=== PATIENT | female | born 2000 | race Caucasian/White ===

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

== ENCOUNTER 2021-03-24 18:24 | Emergency (ER) | payer OTHER ==
[2021-03-24 19:26] LABS: MUDS CUTOFF CONCENTRATIONS CUTOFF CONC BELOW:
[2021-03-24 19:27] LABS: BASOPHILS % (AUTO) 0.7 %; EOSINOPHILS # (AUTO) 0.1 10^3/uL (0.0-0.7); EOSINOPHILS % (AUTO) 1.1 %; HCT - HEMATOCRIT 41.1 % (37.0-47.0); HGB - HEMOGLOBIN 13.6 g/dL (12.0-16.0); LYMPHOCYTES # (AUTO) 1.4 10^3/uL (1.5-3.5); LYMPHOCYTES % (AUTO) 24.3 %; MEAN CORPUSCULAR HEMOGLOBIN 28.2 pg (27.0-31.0); MEAN CORPUSCULAR HGB CONC 33.1 g/dL (32.0-36.0); MEAN CORPUSCULAR VOLUME 85.3 fL (81.0-99.0); MEAN PLATELET VOLUME 10.2 fL (7.9-10.8); MONOCYTES # (AUTO) 0.4 10^3/uL (0.0-1.0); MONOCYTES % (AUTO) 6.4 %; NEUTROPHILS # (AUTO) 3.8 10^3/uL (1.5-6.6); NEUTROPHILS % (AUTO) 67.1 %; PLT - PLATELET COUNT 219 10^3/uL (130-450); RED BLOOD COUNT 4.82 10^6/uL (4.20-5.40); RED CELL DISTRIBUTION WIDTH 13.2 % (12.0-15.0); WHITE BLOOD COUNT 5.6 x10^3/uL (4.8-10.8)
[2021-03-24 19:29] LABS: BILIRUBIN,URINE NEGATIVE (NEGATIVE); GLUCOSE, URINE (UA) NEGATIVE (NEGATIVE); KETONES,URINE (UA) NEGATIVE (NEGATIVE); LEUKOCYTE ESTERASE, URINE NEGATIVE (NEGATIVE); NITRITE,URINE NEGATIVE (NEGATIVE); OCCULT BLOOD,URINE NEGATIVE (NEGATIVE); PROTEIN,URINE NEGATIVE (NEGATIVE); UROBILINOGEN,URINE 0.2 (NORMAL) E.U./dL (NORMAL)
[2021-03-24 19:39] LABS: CLARITY,URINE CLEAR (CLEAR); HCG UR QUAL NEGATIVE
[2021-03-24 19:41] LABS: AMPHETAMINE SCREEN,URINE NEGATIVE (NEGATIVE); BARBITURATE SCREEN,UR NEGATIVE (NEGATIVE); BENZODIAZEPINES SCREEN, URINE POSITIVE (NEGATIVE); COCAINE SCREEN URINE NEGATIVE (NEGATIVE); METHADONE SCREEN, URINE NEGATIVE (NEGATIVE); METHAMPHETAMINES SCREEN, URINE NEGATIVE (NEGATIVE); OPIATE SCREEN, URINE NEGATIVE (NEGATIVE); OXYCODONE SCREEN, URINE NEGATIVE (NEGATIVE); PROPOXYPHENE SCREEN, URINE NEGATIVE (NEGATIVE); THC CANNABINOID SCREEN, URINE NEGATIVE (NEGATIVE); TRICYCLIC ANTIDEPRESSANT,URINE NEGATIVE (NEGATIVE)
[2021-03-24 19:45] LABS: ACETAMINOPHEN < 10 ug/mL (10-30); ALBUMIN 4.7 g/dL (3.2-5.5); ALKALINE PHOSPHATASE 51 IU/L (42-121); ALT ALANINE AMINOTRANSFERASE 15 IU/L (10-60); AST ASPARTATE AMINOTRANSFERASE 17 IU/L (10-42); BUN - BLOOD UREA NITROGEN 15 mg/dL (6-20); CALCIUM 9.6 mg/dL (8.5-10.3); CARBON DIOXIDE - CO2 28 mmol/L (21-32); CHLORIDE 102 mmol/L (101-111); CREATININE 0.6 mg/dL (0.4-1.0); ETOH - ETHANOL < 5.0 mg/dL; GFR - MDRD 127 (>89); GLUCOSE 94 mg/dL (70-100); LIPASE 30 U/L (22-51); POTASSIUM 3.5 mmol/L (3.5-5.0); SALICYLATE < 6.0 mg/dL; SODIUM 139 mmol/L (135-145); TOTAL PROTEIN 7.1 g/dL (6.7-8.2)
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
[2021-03-24] MEDS ORDERED: BACITRACIN ZINC OINT 1 PACKET TOP STA (20:42)
[2021-03-24 20:44] LABS: B. PARAPERTUSSIS- RESP PCR PAN NOT DETECTED; B. PERTUSSIS- RESP PCR PANEL NOT DETECTED; C. PNEUMONIAE- RESP PCR PANEL NOT DETECTED; CORONAVIRUS 229E-RESP PCR NOT DETECTED; CORONAVIRUS HKU1-RESP PCR NOT DETECTED; CORONAVIRUS NL63-RESP PCR NOT DETECTED; CORONAVIRUS OC43-RESP PCR NOT DETECTED; HUMAN METAPNEUMOVIRUS NOT DETECTED; INFLUENZA A- RESP PCR PANEL NOT DETECTED; INFLUENZA B - RESP PCR PANEL NOT DETECTED; M. PNEUMONIAE- RESP PCR PANEL NOT DETECTED; PARAINFLUENZA VIRUS 1 NOT DETECTED; PARAINFLUENZA VIRUS 2 NOT DETECTED; PARAINFLUENZA VIRUS 3 NOT DETECTED; PARAINFLUENZA VIRUS 4 NOT DETECTED; RHINOVIRUS/ENTEROVIRUS NOT DETECTED; RSV- RESP PCR PANEL NOT DETECTED; SARS-CoV-2 -RESP PCR PANEL NOT DETECTED
[2021-03-24 21:48] VITALS: BP 106/55
== END 2021-03-24 21:53 | disposition home or self-care (01) ==
LOC: ED 18:24
DX: F32.A Depression, unspecified (principal); F41.9 Anxiety disorder, unspecified; F43.10 Post-traumatic stress disorder, unspecified; Z91.410 Personal history of adult physical and sexual abuse; S51.812A Laceration without foreign body of left forearm, initial encounter; X78.1XXA Intentional self-harm by knife, initial encounter; Z20.822 Contact with and (suspected) exposure to COVID-19
CPT/HCPCS: 0202U; 36415; 80053; 80306; 80307; 80320; 80329; 81003; 81025; 83690; 84443; 85025; 99283; 81001; 87086

== ENCOUNTER 2021-06-01 09:21 | Emergency (ER) | payer OTHER ==
--- NOTE | 2021-06-01 09:54 | ED Physician Documentation ---
PD HPI SYNCOPE - Stated complaint Stated Complaint: FAINTING - Chief complaint Chief Complaint: Neuro - History obtained from History obtained from: Patient - History of Present Illness Witnessed: Unwitnessed Timing - onset: Today Duration: Seconds Preceding symptoms: Vision changes, Diaphoresis, Light headed, Generalized weakn ess Contributing factors: Just stood up Injury occurred: None Similar symptoms before: Diagnosis (syncope and near syncope) Recently seen: Not recently seen - Additional information Additional information: 20-year-old female relates that she has frequent episodes of syncope or near syncope usually related to standing up too fast. She has been evaluated by her primary care doctor without orthostasis. She denies any vomiting or diarrhea she denies any reason for being dehydrated. She has not been ill recently. She states when she has these events she goes to stand up she gets lightheaded dizzy will sometimes faint or nearly collapse. She has no rhyme or reason for when these episodes happen. She thinks that she has episodes as often as 3-5 times per month. She was asked by her command to come to the [facility] department to be evaluated today when she asked them to excuse her from work for the episode she had this morning. Review of Systems Constitutional: denies: Fever Eyes: denies: Decreased vision Ears: denies: Ear pain Nose: denies: Congestion Throat: denies: Sore throat Cardiac: denies: Chest pain / pressure, Palpitations Respiratory: denies: Dyspnea, Cough GI: denies: Abdominal Pain, Nausea, Vomiting : denies: Dysuria, Frequency PD PAST MEDICAL HISTORY - Past Medical History Psych: Post traumatic stress disorder, Other - Past Surgical History Past Surgical History: No - Present Medications Home Medications: Ambulatory Orders Medication Instructions Recorded Confirmed Sertraline [Zoloft] 200 mg PO DAILY 03/24/21 03/24/21 hydrOXYzine HCL [Hydroxyzine HCl] 10 mg PO BID PRN 03/24/21 03/24/21 - Allergies Allergies/Adverse Reactions: Allergies Allergy/AdvReac Type Severity Reaction Status Date / Time No Known Drug Allergies Allergy Verified 06/01/21 09:47 - Social History Does the pt smoke?: No Smoking Status: Never smoker Does the pt drink ETOH?: No Does the pt have substance abuse?: No - Immunizations Immunizations are current?: Yes - POLST Patient has POLST: No PD ED PE NORMAL - Vitals Vital signs reviewed: Yes (Wide pulse pressure) - General General: Alert and oriented X 3, No acute distress, Well developed/nourished - HEENT HEENT: Atraumatic, PERRL, EOMI - Neck Neck: Supple, no meningeal sign, No bony TTP - Cardiac Cardiac: RRR, No murmur - Respiratory Respiratory: No respiratory distress, Clear bilaterally - Abdomen Abdomen: Normal bowel sounds, Soft, Non tender, Non distended, No organomegaly - Back Back: No CVA TTP, No spinal TTP - Derm Derm: Normal color, Warm and dry, No rash - Extremities Extremities: No deformity, No edema - Neuro Neuro: Alert and oriented X 3, 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, No motor deficit, No sensory deficit, Normal speech Eye Opening: Spontaneous Motor: Obeys Commands Verbal: Oriented GCS Score: 15 - Psych Psych: Normal mood, Normal affect Results - Vitals Vitals: Vital Signs - 24 hr 06/01/21 06/01/21 06/01/21 09:44 10:00 10:02 Temperature 36.8 C Heart Rate 73 66 Heart Rate [ 77 Sitting] Heart Rate [ 77 Standing] Heart Rate [ 68 Supine] Respiratory 16 18 Rate Blood Pressure 102/50 L 100/69 Blood Pressure 100/66 [Sitting] Blood Pressure 98/69 [Standing] Blood Pressure 100/63 [Supine] O2 Saturation 100 100 Oxygen O2 Source Room air - Labs Labs: Laboratory Tests 06/01/21 06/01/21 06/01/21 10:03 10:03 10:37 WBC 4.7 L RBC 4.58 Hgb 12.9 Hct 38.8 MCV 84.7 MCH 28.2 MCHC 33.2 RDW 12.3 Plt Count 187 MPV 10.3 Neut # (Auto) 3.0 Lymph # (Auto) 1.3 L [place] # (Auto) 0.3 Eos # (Auto) 0.1 Baso # (Auto) 0.0 Absolute Nucleated RBC 0.00 Nucleated RBC % 0.0 Sodium 135 Potassium 3.9 Chloride 102 Carbon Dioxide 25 Anion Gap 8.0 BUN 15 Creatinine 0.7 Estimated GFR (MDRD) 107 Glucose 94 Calcium 9.2 Total Bilirubin 0.6 AST 13 ALT 14 Alkaline Phosphatase 36 L Total Protein 6.7 Albumin 4.4 Globulin 2.3 Albumin/Globulin Ratio 1.9 Lipase 40 Urine Color YELLOW Urine Clarity CLEAR Urine pH 6.0 Ur Specific [place] 1.025 Urine Protein NEGATIVE Urine Glucose (UA) NEGATIVE Urine Ketones NEGATIVE Urine Occult Blood NEGATIVE Urine Nitrite NEGATIVE Urine Bilirubin NEGATIVE Urine Urobilinogen 0.2 (NORMAL) Ur Leukocyte Esterase NEGATIVE Ur Microscopic Review NOT INDICATED Urine Culture Comments NOT INDICATED Urine HCG, Qual NEGATIVE Urine Opiates Screen NEGATIVE Ur Oxycodone Screen NEGATIVE Urine Methadone Screen NEGATIVE Ur Propoxyphene Screen NEGATIVE Ur Barbiturates Screen NEGATIVE Ur Tricyclics Screen NEGATIVE Ur Phencyclidine Scrn NEGATIVE Ur Amphetamine Screen NEGATIVE U Methamphetamines Scrn NEGATIVE U Benzodiazepines Scrn NEGATIVE Urine Cocaine Screen NEGATIVE U Cannabinoids Screen NEGATIVE Ethyl Alcohol < 5.0 Procedures - IVC sono (time) 0950 Bedside IVC sono: IVC measures (cm) (1.97), Euvolemia PD MEDICAL DECISION MAKING - ED course Complexity details: reviewed results, re-evaluated patient, considered differential, d/w patient ED course: 20-year-old female with frequent episodes of syncope or near syncope is found to be euvolemic today on interrogation the inferior vena cava. She has no other specific illness and she is not orthostatic on testing. I have asked patient to follow-up with a neurologist to do tilt table testing for potential treatment of pots disease. Departure - Departure Disposition: 01 Home, Self Care Clinical Impression: Syncope and collapse Condition: Stable Instructions: ED Syncope Vasovagal Follow-Up: ALEJANDRA ARCE MD [Primary Care Provider] - Rustam Foster MD [Physician No Access] - Comments: Monae, today we did not discover a specific reason for your fainting episodes. We did document that your volume status today was normal. You did have some change in your heart rate with orthostasis and this was mild. The recommendation currently is to get up slowly when you do get up and have a follow-up arranged with Dr. Ramon for a tilt table test. Forms: Activity restrictions Discharge Date/Time: 06/01/21 11:36
[2021-06-01 10:03] VITALS: BP 100/69
[2021-06-01 10:13] LABS: BASOPHILS % (AUTO) 0.9 %; EOSINOPHILS # (AUTO) 0.1 10^3/uL (0.0-0.7); EOSINOPHILS % (AUTO) 1.5 %; HCT - HEMATOCRIT 38.8 % (37.0-47.0); HGB - HEMOGLOBIN 12.9 g/dL (12.0-16.0); LYMPHOCYTES # (AUTO) 1.3 10^3/uL (1.5-3.5); LYMPHOCYTES % (AUTO) 27.1 %; MEAN CORPUSCULAR HEMOGLOBIN 28.2 pg (27.0-31.0); MEAN CORPUSCULAR HGB CONC 33.2 g/dL (32.0-36.0); MEAN CORPUSCULAR VOLUME 84.7 fL (81.0-99.0); MEAN PLATELET VOLUME 10.3 fL (7.9-10.8); MONOCYTES # (AUTO) 0.3 10^3/uL (0.0-1.0); MONOCYTES % (AUTO) 6.8 %; NEUTROPHILS % (AUTO) 63.5 %; PLT - PLATELET COUNT 187 10^3/uL (130-450); RED BLOOD COUNT 4.58 10^6/uL (4.20-5.40); RED CELL DISTRIBUTION WIDTH 12.3 % (12.0-15.0); WHITE BLOOD COUNT 4.7 x10^3/uL (4.8-10.8)
[2021-06-01 10:23] LABS: ALBUMIN 4.4 g/dL (3.2-5.5); ALBUMIN/GLOBULIN RATIO 1.9 (1.0-2.2); ALKALINE PHOSPHATASE 36 IU/L (42-121); ALT ALANINE AMINOTRANSFERASE 14 IU/L (10-60); AST ASPARTATE AMINOTRANSFERASE 13 IU/L (10-42); BILIRUBIN,TOTAL 0.6 mg/dL (0.2-1.0); BUN - BLOOD UREA NITROGEN 15 mg/dL (6-20); CALCIUM 9.2 mg/dL (8.5-10.3); CARBON DIOXIDE - CO2 25 mmol/L (21-32); CHLORIDE 102 mmol/L (101-111); CREATININE 0.7 mg/dL (0.4-1.0); ETOH - ETHANOL < 5.0 mg/dL; GFR - MDRD 107 (>89); GLUCOSE 94 mg/dL (70-100); LIPASE 40 U/L (22-51); POTASSIUM 3.9 mmol/L (3.5-5.0); SODIUM 135 mmol/L (135-145); TOTAL PROTEIN 6.7 g/dL (6.7-8.2)
[2021-06-01 10:45] LABS: MUDS CUTOFF CONCENTRATIONS CUTOFF CONC BELOW:
[2021-06-01 10:47] LABS: BILIRUBIN,URINE NEGATIVE (NEGATIVE); GLUCOSE, URINE (UA) NEGATIVE (NEGATIVE); KETONES,URINE (UA) NEGATIVE (NEGATIVE); LEUKOCYTE ESTERASE, URINE NEGATIVE (NEGATIVE); NITRITE,URINE NEGATIVE (NEGATIVE); OCCULT BLOOD,URINE NEGATIVE (NEGATIVE); PROTEIN,URINE NEGATIVE (NEGATIVE); UROBILINOGEN,URINE 0.2 (NORMAL) E.U./dL (NORMAL)
[2021-06-01 10:50] LABS: CLARITY,URINE CLEAR (CLEAR); HCG UR QUAL NEGATIVE
[2021-06-01 11:01] LABS: AMPHETAMINE SCREEN,URINE NEGATIVE (NEGATIVE); BARBITURATE SCREEN,UR NEGATIVE (NEGATIVE); BENZODIAZEPINES SCREEN, URINE NEGATIVE (NEGATIVE); COCAINE SCREEN URINE NEGATIVE (NEGATIVE); METHADONE SCREEN, URINE NEGATIVE (NEGATIVE); METHAMPHETAMINES SCREEN, URINE NEGATIVE (NEGATIVE); OPIATE SCREEN, URINE NEGATIVE (NEGATIVE); OXYCODONE SCREEN, URINE NEGATIVE (NEGATIVE); PROPOXYPHENE SCREEN, URINE NEGATIVE (NEGATIVE); THC CANNABINOID SCREEN, URINE NEGATIVE (NEGATIVE); TRICYCLIC ANTIDEPRESSANT,URINE NEGATIVE (NEGATIVE)
== END 2021-06-01 11:36 | disposition home or self-care (01) ==
LOC: ED 09:21
DX: R55 Syncope and collapse (principal)
CPT/HCPCS: 36415; 80053; 80306; 80320; 81001; 81003; 81025; 83690; 85025; 87086; 99283

== ENCOUNTER 2021-06-26 22:37 | Emergency (ER) | payer OTHER ==
[2021-06-26 22:45] VITALS: BP 103/59
[2021-06-26] MEDS ORDERED: ACETAMINOPHEN 325 MG TABLET PO STA (23:09)
--- NOTE | 2021-06-26 23:43 | ED Physician Documentation ---
PD HPI LOWER EXT INJURY - Stated complaint Stated Complaint: L KNEE INJURY - Chief complaint Chief Complaint: Trauma Ext - History obtained from History obtained from: Patient - History of Present Illness PD HPI LOW EXT INJURY LOCATION: Left, Knee Timing - onset: How many days ago (1) Improved by: Rest Worsened by: Moving Associated symptoms: No: Weakness, Numbness, Tingling Contributing factors: No: Prior ortho surgery - Additional information Additional information: Patient presenting for evaluation of left knee pain for 1 day. Patient was at a climbing gym when she was being lowered and landed wrong. She was able to ambulate but has been having a pain to the posterior aspect of the left knee since then.She has not tried anything for her pain. SheDenies previous injury, numbness, tingling, weakness. There is no pain elsewhere. Review of Systems Constitutional: denies: Fever Cardiac: denies: Chest pain / pressure Respiratory: denies: Dyspnea GI: denies: Abdominal Pain : denies: Dysuria Musculoskeletal: reports: Joint pain Neurologic: denies: Generalized weakness PD PAST MEDICAL HISTORY - Past Medical History Past Medical History: Yes Psych: Depression, Anxiety, Post traumatic stress disorder, Other - Past Surgical History Past Surgical History: No - Present Medications Home Medications: Ambulatory Orders Medication Instructions Recorded Confirmed Sertraline [Zoloft] 100 mg PO DAILY 03/24/21 06/26/21 Propranolol [Inderal] 10 mg PO DAILY 06/26/21 06/26/21 Venlafaxine HCl 75 mg PO DAILY 06/26/21 06/26/21 - Allergies Allergies/Adverse Reactions: Allergies Allergy/AdvReac Type Severity Reaction Status Date / Time No Known Drug Allergies Allergy Verified 06/26/21 22:45 - Social History Does the pt smoke?: No Smoking Status: Never smoker Does the pt drink ETOH?: No Does the pt have substance abuse?: No - Immunizations Immunizations are current?: Yes - POLST Patient has POLST: No PD ED PE NORMAL - General General: Alert and oriented X 3, No acute distress - HEENT HEENT: Atraumatic, PERRL - Cardiac Cardiac: RRR, No gallop, Strong equal pulses - Respiratory Respiratory: No respiratory distress, Clear bilaterally - Abdomen Abdomen: Soft - Derm Derm: Normal color, Warm and dry, No rash - Extremities Extremities: No deformity, No calf tenderness / cord, Other (No pain with flexion of left knee, slight pain with full extension in the region of the distal posterior thigh, No crepitus, redness or swelling.). No: No tenderness to palpate - Neuro Neuro: No motor deficit, No sensory deficit PD ED PE EXPANDED - Visual Whole body visual: 1 - tenderness Results - Vitals Vitals: Vital Signs - 24 hr 06/26/21 22:40 Temperature 36.0 C L Heart Rate 80 Respiratory 16 Rate Blood Pressure 103/59 L O2 Saturation 100 Oxygen O2 Source Room air PD MEDICAL DECISION MAKING - ED course ED course: Patient presenting for evaluation of posterior left knee pain. Pain seems to be localized to the distal hamstrings and present primarily with extension At the knee. X-ray is negative for fracture dislocation. I do not suspect a DVT. She is neurovascularly intact. Compartments of the extremity are soft. She is able to ambulate. I suspect a muscle or ligament strain. Discussed supportive care with the patient and follow-up with primary care doctor if symptoms do not improve. Departure - Departure Disposition: 01 Home, Self Care Clinical Impression: Knee injury Qualifiers: Encounter type: initial encounter Laterality: left Qualified Code(s): S89.92XA - Unspecified injury of left lower leg, initial encounter Condition: Stable Instructions: ED Sprain Knee Comments: Your x-ray does not show a broken bone or a bone out of place. You may have strained a muscle or ligament but the joint appears stable. Use the Brian wrap for additional support and I recommend you trying to rest the extremity as much as possible for the next day. You can also use ice and Tylenol or Motrin for pain as needed. Please follow-up with your PCM. Discharge Date/Time: 06/27/21 00:15
--- NOTE | 2021-06-26 23:53 | XRAY Report ---
PROCEDURE: Knee 2 View LT INDICATIONS: pain TECHNIQUE: 3 views of the left knee were acquired. COMPARISON: None. FINDINGS: Bones: No acute fractures or dislocations. No suspicious bony lesions. Soft tissues: No joint effusion. No suspicious soft tissue calcifications. IMPRESSION: No acute osseous abnormality. If there is clinical concern or persistent symptoms, carol tional imaging such as repeat radiographs or advanced imaging (e.g. CT, MRI) may be helpful for furth er evaluation. Reviewed by: Salvador Guajardo MD on 06/26/2021 11:51 PM PST Approved by: Salvador Guajardo MD on 06/26/2021 11:51 PM PST Station ID: [id number]
== END 2021-06-27 00:15 | disposition home or self-care (01) ==
LOC: ED 22:37
DX: S89.92XA Unspecified injury of left lower leg, initial encounter (principal); X50.1XXA Overexertion from prolonged static or awkward postures, initial encounter; Y93.31 Activity, mountain climbing, rock climbing and wall climbing; Y92.39 Other specified sports and athletic area as the place of occurrence of the external cause
CPT/HCPCS: 73560; 99282; 99283; A9270

== ENCOUNTER 2021-06-28 14:55 | Emergency (ER) | payer OTHER ==
[2021-06-28 15:15] VITALS: BP 98/55
--- OUTSIDE RECORDS SUMMARY | 2021-06-28 15:29 | EXTERNAL MEDICAL SUMMARY RPT | Continuity of Care Document ---
:2000 Author Organization [facility] Address [address] [place] [address] Phone Care Team Providers Name Role Phone Kenton VALDEZ Unavailable Unavailable Allergies No information. Encounters No information. Medications No information. Problems date description facility [id number] Unspecified injury of left lower leg, i nitial encounter All [id number] Injury of left knee All Results No information. Vital Signs date measurement value source 20210627 weight_standard 124 lb [id number] weight_metric 56.25 kg 20210627 temperature_standard 98.2 F [id number] temperature_metric 36.78 C 20210627 respiration_rate 16 /min 20210627 heart_rate 16 /min [id number] BP_systolic 108 mm[Hg] 20210627 BP_diastolic 72 mm[Hg]
[2021-06-28] MEDS ORDERED: MELOXICAM 7.5 MG TABLET PO STA (15:53)
--- NOTE | 2021-06-28 15:57 | ED Physician Documentation ---
PD HPI LOWER EXT INJURY - Stated complaint Stated Complaint: KNEE PX - Chief complaint Chief Complaint: Trauma Ext - History obtained from History obtained from: Patient - History of Present Illness PD HPI LOW EXT INJURY LOCATION: Left, Knee Type of injury: Fall Where injury occurred: Home Pain level max: 7 Pain level now: 5 Improved by: Rest, Ice, Immobilization Worsened by: Moving, Palpating Associated symptoms: Swelling. No: Weakness, Numbness, Tingling, Discolored Contributing factors: No: Anticoagulated - Additional information Additional information: Patient is a 20-year-old female who presents to the emergency department complaining of left knee pain. She states that this started after hyperextending the knee at a climbing gym. Worse with movement, better with rest. States it is painful to walk. Has not taken anything for pain at home. Has noted swelling to the knee. Denies any possibility of . Had negative x-rays previously Review of Systems Constitutional: denies: Fever, Chills GI: denies: Vomiting : denies: Now EGA Skin: denies: Rash Musculoskeletal: denies: Neck pain, Back pain Neurologic: denies: Headache PD PAST MEDICAL HISTORY - Past Medical History Past Medical History: Yes Psych: Depression, Anxiety, Post traumatic stress disorder, Other - Past Surgical History Past Surgical History: No - Present Medications Home Medications: Ambulatory Orders Medication Instructions Recorded Confirmed Sertraline [Zoloft] 100 mg PO DAILY 03/24/21 06/28/21 Propranolol [Inderal] 10 mg PO DAILY 06/26/21 06/28/21 Venlafaxine HCl 75 mg PO DAILY 06/26/21 06/28/21 Meloxicam [Mobic] 15 mg PO DAILY PRN #20 tablet 06/28/21 - Allergies Allergies/Adverse Reactions: Allergies Allergy/AdvReac Type Severity Reaction Status Date / Time No Known Drug Allergies Allergy Verified 06/28/21 15:10 - Social History Does the pt smoke?: No Smoking Status: Never smoker Does the pt drink ETOH?: No Does the pt have substance abuse?: No - Immunizations Immunizations are current?: Yes - POLST Patient has POLST: No PD ED PE NORMAL - Vitals Vital signs reviewed: Yes - General General: Alert and oriented X 3, No acute distress - HEENT HEENT: Moist mucous membranes - Respiratory Respiratory: No respiratory distress - Derm Derm: Warm and dry - Extremities Extremities: No deformity, Other (Mild joint effusion to the left knee. Tender palpation along the medial joint line. ACL, PCL, MCL, LCL are intact. Mild laxity of the LCL. Unable to tolerate meniscus tested. Neurovascularly intact) - Neuro Neuro: Alert and oriented X 3 - Psych Psych: Normal mood, Normal affect Results - Vitals Vitals: Vital Signs - 24 hr 06/28/21 15:11 Temperature 36.7 C Heart Rate 75 Respiratory 16 Rate Blood Pressure 98/55 L O2 Saturation 97 Oxygen O2 Source Room air PD MEDICAL DECISION MAKING - ED course Complexity details: reviewed old records, considered differential, d/w patient ED course: Patient had left knee x-rays 2 days ago, we will not repeat these today. Likely meniscus injury causing the joint effusion. Placed in an articulating knee brace from 10 to 30 degrees. Given crutches. Will prescribe meloxicam for home. Neurovascularly intact. We will have her follow-up with orthopedics for further care. Patient counseled regarding signs and symptoms for which I believe and urgent re-evaluation would be necessary. Patient with good understanding of and agreement to plan and is comfortable going home at this time This document was made in part using voice recognition software. While efforts are made to proofread this document, sound alike and grammatical errors may occur. Departure - Departure Disposition: 01 Home, Self Care Clinical Impression: Knee effusion, left Condition: Good Instructions: ED Meniscal Injury Knee Poss, ED Sprain Knee Follow-Up: Orthopedic Care [Provider Group] [facility] [Provider Group] Morenita Rosenthal MD [Physician No Access] - Prescriptions: Meloxicam [Mobic] 15 mg PO DAILY PRN #20 tablet PRN Reason: pain Comments: You appear to have a left knee joint effusion today. This could be due to a meniscus injury. We have placed you in an articulating knee brace along with crutches. Your prescription was sent to the [facility] in [place]. I have listed several orthopedists that you can follow-up with. Please return if you worsen. You will need a more complete knee examination once the swelling and pain have decreased.
== END 2021-06-28 16:17 | disposition home or self-care (01) ==
LOC: ED 14:55
DX: M25.462 Effusion, left knee (principal)
CPT/HCPCS: 99282; 99283; A9270

== ENCOUNTER 2021-08-09 13:32 | Outpatient (CLI) | payer OTHER ==
--- NOTE | 2021-08-09 16:54 | MRI Report ---
PROCEDURE: Knee LT W/O INDICATIONS: LEFT KNEE PAIN TECHNIQUE: Noncontrast sagittal PD fast spin echo and T2 fast spin echo with fat saturation, sagittal 3-D gradie nt sequence with fat saturation; coronal T1 spin echo and PD fast spin echo with fat saturation, and axial PD fast spin echo with fat saturation through the knee. COMPARISON: Reference is made to the left knee radiograph dated June 26, 2021. Findings: Medial meniscus: No surface communication/tear. Lateral meniscus: No surface communication/tear. LIGAMENTS/TENDONS: Patellar tendon: Intact. Distal quadriceps tendon: Intact. Hoffa's fat pad: No evidence of fibrosis or mass. PCL: Intact. ACL: Intact. Lateral collateral ligament complex: No significant abnormality. Popliteus tendon: Intact. Medial collateral ligament: No significant abnormality. MARROW: No significant abnormality. CARTILAGE: No significant chondromalacia or delamination injury. Muscles: No significant edema or atrophy. Joint effusion/Pandey's cyst: Small suprapatellar joint effusion. T2 hyperintense lesion in the poplit eal fossa measuring 3.6 x 1.5 cm. Subcutaneous soft tissues: No significant edema. IMPRESSION: 1.No evidence of internal derangement. 2.Small joint effusion. 3.Small fluid collection in the popliteal fossa, most consistent with a Pandey's cyst. Reviewed by: Estuardo Mata MD on 08/09/2021 4:52 PM PDT Approved by: Estuardo Mata MD on 08/09/2021 4:52 PM PDT Station ID: [id number]
--- NOTE | 2021-08-09 16:57 | MRI Report ---
PROCEDURE: Shoulder LT W/O INDICATIONS: Left shoulder pain. TECHNIQUE: Noncontrast oblique coronal T2 fast spin echo with fat saturation, oblique sagittal T1 spin echo and T2 fast spin echo with fat saturation, axial T1 spin echo and T2 fast spin echo with fat saturation t hrough the shoulder. COMPARISON: None. Findings: Supraspinatus: No evidence of tear. Infraspinatus: No evidence of tear. Subscapularis: No evidence of tear. Teres minor: No evidence of tear. Labrum: No evidence of tear. Biceps tendon: No evidence of subluxation or tear. Acromioclavicular joint: Normal alignment. Muscle: No significant atrophy. Bones: Minimal T2 hyperintense/T1 hypointense signal seen in the humeral head, which may reflect fibr ocystic change and/or acute injury. Specifically, no evidence of fracture, contusion, or necrosis. Miscellaneous: No glenohumeral joint effusion. Trace subacromial/subdeltoid bursal fluid. No intra-articular bodies. Intact coracoclavicular ligament. IMPRESSION: 1. Trace fluid in the subacromial/subdeltoid bursa, which may reflect mild bursitis. 2. Minimal edematous signal in the humeral head, which may reflect fibrocystic change and/or acute in jury. Reviewed by: Estuardo Mata MD on 08/09/2021 4:56 PM PDT Approved by: Estuardo Mata MD on 08/09/2021 4:56 PM PDT Station ID: [id number]
== END 2021-08-09 13:33 | disposition home or self-care (01) ==
LOC: DI 13:32
PROVIDERS: ATTEND Student in an Organized Health Care Education/Training Program
DX: M25.462 Effusion, left knee (principal); R93.6 Abnormal findings on diagnostic imaging of limbs

== ENCOUNTER 2021-08-31 12:55 | Emergency (ER) | payer OTHER ==
[2021-08-31 13:09] VITALS: BP 109/55
--- NOTE | 2021-08-31 13:20 | ED Physician Documentation ---
PD HPI UPPER EXT INJURY - Stated complaint Stated Complaint: LEFT ARM INJURY - Chief complaint Chief Complaint: Trauma Ext - History obtained from History obtained from: Patient - History of Present Illness Location: Left, Forearm Type of injury: Blunt / blow (she states a bedframe storage lid (hide-a-bed type of thing) that was lifted up fell onto her forearm. bruising, pain and swelling proximal forearm. Increased pain with ROM of the wrist and forearm.) Where injury occurred: Home Timing - onset: Last night Worsened by: Moving, Palpating Associated symptoms: Swelling, Discolored. No: Weakness, Numbness Similar symptoms before: Has not had sx before Review of Systems Skin: denies: Abrasion (s), Laceration (s) Neurologic: denies: Focal weakness, Numbness PD PAST MEDICAL HISTORY - Past Medical History Cardiovascular: None Psych: Depression, Anxiety, Post traumatic stress disorder, Other Musculoskeletal: None - Past Surgical History Past Surgical History: No - Present Medications Home Medications: Ambulatory Orders Medication Instructions Recorded Confirmed Venlafaxine HCl 75 mg PO DAILY 06/26/21 08/31/21 - Allergies Allergies/Adverse Reactions: Allergies Allergy/AdvReac Type Severity Reaction Status Date / Time No Known Drug Allergies Allergy Verified 06/28/21 15:10 - Social History Does the pt smoke?: No Smoking Status: Never smoker Does the pt drink ETOH?: No Does the pt have substance abuse?: No - Immunizations Immunizations are current?: Yes - POLST Patient has POLST: No PD ED PE NORMAL - Vitals Vital signs reviewed: Yes - General General: Alert and oriented X 3, No acute distress, Well developed/nourished - Derm Derm: Normal color, Warm and dry - Extremities Extremities: Other (left forearm with band of bruising proximal third of forearm with local swelling. ROM of the wrist and forearm is good, but hurts with wrist flex/extension. ) - Neuro Neuro: No motor deficit, No sensory deficit Results - Vitals Vitals: Vital Signs - 24 hr 08/31/21 08/31/21 13:04 13:54 Temperature 37.2 C Heart Rate 78 Respiratory 14 Rate Blood Pressure 109/55 L O2 Saturation 100 Oxygen O2 Source Room air - Rads (name of study) left forearm Radiology: Prelim report reviewed (no fractures), See rad report PD MEDICAL DECISION MAKING - ED course Complexity details: reviewed results, considered differential, d/w patient Departure - Departure Disposition: 01 Home, Self Care Clinical Impression: Forearm contusion Qualifiers: Encounter type: initial encounter Laterality: left Qualified Code(s): S50.12XA - Contusion of left forearm, initial encounter Condition: Stable Record reviewed to determine appropriate education?: Yes Instructions: ED Contusion Upper Ext Follow-Up: FIDEL JUNG DO [Primary Care Provider] - Comments: Your x-ray appears normal without any signs of fractures. Obviously your having bruising and swelling into the forearm and this will impact the muscle function with hurting on use. Ice rest and elevate often to reduce swelling. The bruising will slowly resolve in color over time. Light to minimal use of the left arm for the next 3 days to allow for some of the muscle swelling to decrease. Tylenol or ibuprofen as needed for pains. Recheck if not improving well over the next several days to week. Forms: Activity restrictions Discharge Date/Time: 08/31/21 14:05
[2021-08-31] MEDS: IBUPROFEN 600 MG TABLET PO STA (13:33)
--- OUTSIDE RECORDS SUMMARY | 2021-08-31 13:51 | EXTERNAL MEDICAL SUMMARY RPT | Continuity of Care Document ---
:2000 Author Organization [facility] Address [address] [place] [address] Phone Care Team Providers Name Role Phone PA-C Unavailable Unavailable Allergies No information. Encounters No [...]
--- NOTE | 2021-08-31 13:53 | XRAY Report ---
PROCEDURE: Forearm LT INDICATIONS: L forearm injury TECHNIQUE: 2 views of the forearm were acquired. COMPARISON: None FINDINGS: Bones: No fractures or dislocations. No suspicious bony lesions. Soft tissues: No suspicious soft tissue calcifications or masses. Soft tissue swelling is noted over the dorsal mid forearm. IMPRESSION: No fracture. No osseous lesion. If symptoms and/or clinical concern for pathology persists, further a ssessment with repeat plain film radiographs (7-10 days) or advanced imaging (CT, MR, bone scan) shou ld be considered. Reviewed by: Ami James MD, PhD on 08/31/2021 1:52 PM PDT Approved by: Ami James MD, PhD on 08/31/2021 1:52 PM PDT Station ID: [id number]
== END 2021-08-31 14:05 | disposition home or self-care (01) ==
LOC: ED 12:55
DX: S50.12XA Contusion of left forearm, initial encounter (principal); W20.8XXA Other cause of strike by thrown, projected or falling object, initial encounter; Y92.009 Unspecified place in unspecified non-institutional (private) residence as the place of occurrence of the external cause
CPT/HCPCS: 73090; 99282; 99283; A9270